=== PATIENT | female | born 1995 | race Caucasian/White ===

== ENCOUNTER 2017-04-23 10:46 | Emergency (ER) | payer BC ==
[2017-04-23] MEDS ORDERED: NS 0.9% 1000 ML* 1,000 ML IV ONE (12:36)
[2017-04-23 13:10] LABS: Hematocrit 39 % (35-47); Hemoglobin 12.8 g/dl (12.0-16.0); Mean Corpuscular HGB Conc 33 g/dl (31-36); Mean Corpuscular Hemoglobin 29 pg (27-31); Mean Corpuscular Volume 87 fL (80-97); Mean Platelet Volume 8 um3 (7.4-10.4); Red Blood Count 4.47 10^6/ul (4.0-5.4); Red Cell Distribution Width 13 % (10.5-15); White Blood Count 11.3 10^3/ul (3.5-10.8)
[2017-04-23 13:25] LABS: Albumin 4.1 g/dL (3.2-5.2); BUN/Creatinine Ratio 18.3 (8-20); Calcium 9.1 mg/dL (8.6-10.3); EGFR African American 159.3 (>60); EGFR Non-African American 123.9 (>60); Globulin 2.9 g/dL (2-4); Potassium 3.6 mmol/L (3.5-5.0); Total Bilirubin 0.4 mg/dL (0.2-1.0)
--- NOTE | 2017-04-23 14:27 | RAD ---
Indication: Five-week , left lower quadrant pain. Real-time sonography of the pelvis was performed. There is a single intrauterine gestation with a gestational sac size of 9.2 mm. This corresponds to gestational age of 5 weeks 4 days. No pole is identified. Right ovary measures 3.3 x 2.3 x 2.1 cm with corpus luteum cyst measuring 2.1 x 1.9 x 1.8 cm. Left ovary measures 3.5 x 1.3 x 1.8 cm. IMPRESSION: There is a intrauterine gestational sac present with a gestational age of 5 weeks 4 days. No pole is identified. Follow-up exam is suggested. Correlation with serial quantitative hCG could BE performed.
[2017-04-23 14:42] LABS: Urine Bilirubin Negative (Negative); Urine Glucose Negative (Negative); Urine Nitrite Negative (Negative)
[2017-04-23 16:35] VITALS: BP 115/61
--- NOTE | 2017-04-23 18:34 | ED ---
dipesh Hammer Timothy, scribed for Gerber Warren MD on 04/23/17 at 1237 . GI/ HPI - HPI Summary HPI Summary: Vi Ramirez is a 22 yo female presenting to [facility] with 8/10 left sided pelvic cramping without vaginal bleeding or discharge since 0845 this morning. She is 5 weeks . This is her first . She denies any PMHx other than achilles tendonitis. - History of Current Complaint Chief Complaint: EDOBProblems Time Seen by Provider: 04/23/17 12:25 Stated Complaint: 5 WEEKS HAVING CRAMPS Hx Obtained From: Patient Onset/Duration: Started Hours Ago, Still Present Timing: Constant Severity: Moderate Current Severity: Moderate Pain Intensity: 8 Location of Pain: Suprapubic - left pelvic Associated Signs and Symptoms: Positive: Other: - , left sided pelvic pain - Allergy/Home Medications Allergies/Adverse Reactions: Allergies Allergy/AdvReac Type Severity Reaction Status Date / Time No Known Allergies Allergy Verified 04/23/17 10:50 PMH/Surg Hx/FS Hx/Imm Hx Infectious Disease History: Yes Infectious Disease History: Denies: Traveled Outside the [place] in Last 30 Days - Family History Known Family History: Positive: Cardiac Disease, Hypertension, Diabetes, Other - thyroid - Social History Occupation: Employed Full-time Lives: With Family Hx Substance Use: No Substance Use Type: Reports: None Hx Tobacco Use: No Smoking Status (MU): Never Smoked Tobacco - Additional Comments History Additional Comments: achilles tendonitis Review of Systems Constitutional: Negative Eyes: Negative ENT: Negative Cardiovascular: Negative Respiratory: Negative Positive: Abdominal Pain - left sided pelvic pain Genitourinary: Negative Musculoskeletal: Negative Skin: Negative Neurological: Negative Psychological: Normal All Other Systems Reviewed And Are Negative: Yes Physical Exam - Summary Physical Exam Summary: VITAL SIGNS: Reviewed. GENERAL: Patient is a well-developed and obese female who is lying comfortable in the stretcher. Patient is not in any acute respiratory distress. HEAD AND FACE: Normocephalic and atraumatic. EYES: PERRLA, EOMI x 2, No injected conjunctiva. EARS: Hearing grossly intact. Ear canals and tympanic membranes are WNL. MOUTH: Oropharynx within normal limits. NECK: Supple, trachea is midline, no adenopathy, no JVD. CHEST: Symmetric, no tenderness at palpation LUNGS: Clear to auscultation bilaterally. No wheezing or crackles. CVS: RRR, S1 and S2 present, no murmurs or gallops appreciated. ABDOMEN: Soft, positive tenderness in the LLQ and left pelvic area. No signs of distention. Positive bowel sounds. No rebound no guarding, and no masses palpated. No abdominal bruit or pulsations. EXTREMITIES: FROM in all major joints, no edema, no cyanosis or clubbing. NEURO: Alert and oriented x 3. No acute neurological deficits. Speech is normal. SKIN: Dry and warm Triage Information Reviewed: Yes Vital Signs On Initial Exam: Initial Vitals Temp Pulse Resp BP Pulse Ox 98.6 F 89 16 142/87 96 04/23/17 10:48 04/23/17 10:48 04/23/17 10:48 04/23/17 10:48 04/23/17 10:48 Vital Signs Reviewed: Yes Diagnostics - Vital Signs Vital Signs Temp Pulse Resp BP Pulse Ox 04/23/17 11:49 98.7 F 91 16 131/78 97 04/23/17 10:48 98.6 F 89 16 142/87 96 - Laboratory Lab Results: Lab Results 04/23/17 04/23/17 04/23/17 Range/Units 13:00 13:00 13:00 WBC 11.3 H (3.5-10.8) 10^3/ul RBC 4.47 (4.0-5.4) 10^6/ul Hgb 12.8 (12.0-16.0) g/dl Hct 39 (35-47) % MCV 87 (80-97) fL MCH 29 (27-31) pg MCHC 33 (31-36) g/dl RDW 13 (10.5-15) % Plt Count 239 (150-450) 10^3/ul MPV 8 (7.4-10.4) um3 Neut % (Auto) 67.6 (38-83) % Lymph % (Auto) 23.0 L (25-47) % [place] % (Auto) 8.4 (1-9) % Eos % (Auto) 0.5 (0-6) % Baso % (Auto) 0.5 (0-2) % Absolute Neuts (auto) 7.6 (1.5-7.7) 10^3/ul Absolute Lymphs (auto) 2.6 (1.0-4.8) 10^3/ul Absolute Monos (auto) 1.0 H (0-0.8) 10^3/ul Absolute Eos (auto) 0.1 (0-0.6) 10^3/ul Absolute Basos (auto) 0.1 (0-0.2) 10^3/ul Absolute Nucleated RBC 0.01 10^3/ul Nucleated RBC % 0.1 Sodium 136 (133-145) mmol/L Potassium 3.6 (3.5-5.0) mmol/L Chloride 105 (101-111) mmol/L Carbon Dioxide 23 (22-32) mmol/L Anion Gap 8 (2-11) mmol/L BUN 11 (6-24) mg/dL Creatinine 0.60 (0.51-0.95) mg/dL Est GFR ( Amer) 159.3 (>60) Est GFR (Non-Af Amer) 123.9 (>60) BUN/Creatinine Ratio 18.3 (8-20) Glucose 78 (70-100) mg/dL Lactic Acid 0.8 (0.5-2.0) mmol/L Calcium 9.1 (8.6-10.3) mg/dL Total Bilirubin 0.40 (0.2-1.0) mg/dL AST 15 (13-39) U/L ALT 16 (7-52) U/L Alkaline Phosphatase 71 (34-104) U/L Total Protein 7.0 (6.4-8.9) g/dL Albumin 4.1 (3.2-5.2) g/dL Globulin 2.9 (2-4) g/dL Albumin/Globulin Ratio 1.4 (1-3) Beta HCG, Quant 7602.00 mIU/mL Urine Color Urine Appearance Urine pH (5-9) Ur Specific [place] (1.010-1.030) Urine Protein (Negative) Urine Ketones (Negative) Urine Blood (Negative) Urine Nitrate (Negative) Urine Bilirubin (Negative) Urine Urobilinogen (Negative) Ur Leukocyte Esterase (Negative) Urine Glucose (Negative) 04/23/17 Range/Units 14:06 WBC (3.5-10.8) 10^3/ul RBC (4.0-5.4) 10^6/ul Hgb (12.0-16.0) g/dl Hct (35-47) % MCV (80-97) fL MCH (27-31) pg MCHC (31-36) g/dl RDW (10.5-15) % Plt Count (150-450) 10^3/ul MPV (7.4-10.4) um3 Neut % (Auto) (38-83) % Lymph % (Auto) (25-47) % [place] % (Auto) (1-9) % Eos % (Auto) (0-6) % Baso % (Auto) (0-2) % Absolute Neuts (auto) (1.5-7.7) 10^3/ul Absolute Lymphs (auto) (1.0-4.8) 10^3/ul Absolute Monos (auto) (0-0.8) 10^3/ul Absolute Eos (auto) (0-0.6) 10^3/ul Absolute Basos (auto) (0-0.2) 10^3/ul Absolute Nucleated RBC 10^3/ul Nucleated RBC % Sodium (133-145) mmol/L Potassium (3.5-5.0) mmol/L Chloride (101-111) mmol/L Carbon Dioxide (22-32) mmol/L Anion Gap (2-11) mmol/L BUN (6-24) mg/dL Creatinine (0.51-0.95) mg/dL Est GFR ( Amer) (>60) Est GFR (Non-Af Amer) (>60) BUN/Creatinine Ratio (8-20) Glucose (70-100) mg/dL Lactic Acid (0.5-2.0) mmol/L Calcium (8.6-10.3) mg/dL Total Bilirubin (0.2-1.0) mg/dL AST (13-39) U/L ALT (7-52) U/L Alkaline Phosphatase (34-104) U/L Total Protein (6.4-8.9) g/dL Albumin (3.2-5.2) g/dL Globulin (2-4) g/dL Albumin/Globulin Ratio (1-3) Beta HCG, Quant mIU/mL Urine Color Straw Urine Appearance Clear Urine pH 6.0 (5-9) Ur Specific [place] 1.006 L (1.010-1.030) Urine Protein Negative (Negative) Urine Ketones Negative (Negative) Urine Blood Negative (Negative) Urine Nitrate Negative (Negative) Urine Bilirubin Negative (Negative) Urine Urobilinogen Negative (Negative) Ur Leukocyte Esterase Negative (Negative) Urine Glucose Negative (Negative) Result Diagrams: 04/23/17 13:00 04/23/17 13:00 Lab Statement: Any lab studies that have been ordered have been reviewed, and results considered in the medical decision making process. - Ultrasound No standard instances Ultrasound Interpretation: Positive (See Comments) - IMPRESSION: There is a intrauterine gestational sac present with a gestational age of 5 weeks 4 days. No pole is identified. Follow-up exam is suggested. Correlation with serial quantitative hCG could BE performed. Ultrasound Interpretation Completed By: Radiologist Re-Evaluation - Re-Evaluation First Eval Re-Evaluation Time: 15:08 Change: Unchanged Comment: Discussed lab and imaging resutls, as well as consult with Dr. Dhaliwal. GIGU Course/Dx - Course Assessment/Plan: Vi Ramirez is a 22 yo female 5 weeks presenting to [facility] with 8/10 left sided pelvic crampins since 08 this morning. In the ED course she received IV fluids. Her transvaginal US suggests a gestational sac with a gestational age of 5 weeks 4 days, without a pole. After clinical examination and review of her lab and imaging studies, as well as discussion with Dr. Dhaliwal, she will be discharged home with abdominal pain and threatened miscarriage with appropriate instructions. Tests results WNL, HCG is 7602, urine shows no UTI. Transvaginal US suggests a gestational sac with a gestational age of 5 weeks 4 days, without a pole. I discussed my findings and results with Dr. Dhaliwal, who recommends discharge of the Pt with follow up with her FINANCIAL ANALYST. Pt has an intrauterine , therefore there is no suspicioin for ectropic . Examination of the abd shows softness with minimal tenderness in the left pelvic area. Pt is hemodynamically stable and A&Ox3. I did not check RH since patient has no vaginal bleeding or discharge. I discussed all the findings and test results with the patient. Patient was instructed to return to the emergency room immediately if any of the symptoms return or worsens. Patient understands and agrees. Plan of care was discussed with the patient and patient understands and agrees with the plan of care. All questions were answered at patient satisfaction. There were no further complaints or concerns. Patient is alert and oriented x 3. Patient vital signs are stable. Patient is to follow up with primary care physician in the next 2 to 3 days. Patient understands and agrees. - Diagnoses Differential Diagnoses - Female: Provider Diagnoses: Abdominal pain, Threatened miscarriage - Physician Notifications Discussed Care Of Patient With: 1505 - dr. Dhaliwal (FINANCIAL ANALYST) - discussed Pt condition, recommends discharge with FINANCIAL ANALYST follow up. Discharge - Discharge Plan Condition: Stable Disposition: HOME Patient Education Materials: Acute Abdominal Pain (ED), Threatened Miscarriage (ED) Referrals: Gonzalez Aragon MD [Primary Care Provider] - 2 Days Socrates Dhaliwal MD [Medical Doctor] - 2 Days Additional Instructions: Please follow up with your primary care physician and the FINANCIAL ANALYST doctor provided regarding your visit to the emergency department today. Return to the emergency department wit jadyn new or recurring symptoms. The documentation as recorded by the dipesh kelly Timothy accurately reflects the service I personally performed and the decisions made by me, Gerber Warren MD.
== END 2017-04-23 16:10 | disposition home or self-care (01) ==
LOC: ED 10:46
DX: O20.0 Threatened abortion (principal); Z3A.01 Less than 8 weeks gestation of pregnancy
CPT/HCPCS: 36415; 76817; 80053; 81003; 83605; 84702; 85025; 96360; 99282